=== PATIENT | male | born 1985 | race Caucasian/White ===

== ENCOUNTER 2019-09-07 16:34 | Emergency (ER) | payer SELFPAY ==
--- NOTE | 2019-09-07 19:02 | EDM.PDOC ---
ED HPI GENERAL MEDICAL PROBLEM - General Chief Complaint: Behavioral/Psych Stated Complaint: fast heart rate Time Seen by Provider: 09/07/19 17:04 Source of Information: Reports: Patient History Limitations: Reports: No Limitations - History of Present Illness INITIAL COMMENTS - FREE TEXT/NARRATIVE: 34-year-old male presents to the ED with recurrent bouts of generalized anxiety with palpitations dyspnea, and today a strong sense of doom. Associated numbness and tingling in his upper extremities particularly his hands and periorally. He states this is the third or fourth bout that he is experienced but this was the worst . Previously was aware of palpitations with a thud feeling in his chest. Today he felt his heart was racing more than the past. Patient admits that there is numerous life stressors going on at present with the [place] virus interfering with his ability to work as well as whether or not he is going to continue to have a job to support his family etc. He has had no previous problems with generalized anxiety. He states he is sleeping fairly well and eating adequately. Denies any depression symptoms or suicidal ideation. He otherwise is in good health. Takes alcohol socially no substance abuse Onset: Today (Parents to bout of palpitations with racing heart shortness of breath diaphoresis paresthesias and a strong sense of doom.) Onset Date: 09/07/19 (Times lasted approximately 10 to 15 minutes.) Duration: Minutes: Location: Reports: Generalized Quality: Reports: Other (States he is in hands) Severity: Severe (and periorally.) Improves with: Reports: Other (Improved on its own.) Worsens with: Reports: None Context: Reports: Other (Pain is occurrence for no good reason. The trigger itself is not known to the patient). Denies: Activity, Exercise, Lifting, Sick Contact, Trauma Associated Symptoms: Reports: Malaise, Shortness of Breath, Weakness, Other ( Rotations diaphoresis). Denies: Confusion, Chest Pain, Cough, cough w sputum, Diaphoresis, Fever/Chills, Headaches, Loss of Appetite, Nausea/Vomiting, Rash, Seizure, Syncope Treatments MANUFACTURER'S REPRESENTATIVE: Reports: Other (see below) - Related Data Allergies Allergy/AdvReac Type Severity Reaction Status Date / Time No Known Allergies Allergy Verified 09/07/19 16:40 Home Meds: Home Meds LORazepam [Ativan] 1 mg PO Q8H PRN #10 tablet 09/07/19 [Rx] Past Medical History - Infectious Disease History Infectious Disease History: Reports: Chicken Pox, Influenza - Past Surgical History HEENT Surgical History: Reports: Oral Surgery Musculoskeletal Surgical History: Reports: Arthroscopic Knee Social & Family History - Family History Family Medical History: Noncontributory - Tobacco Use Smoking Status *Q: Never Smoker Second Hand Smoke Exposure: No - Living Situation & Occupation Living situation: Reports: Occupation: Employed ED ROS GENERAL - Review of Systems Review Of Systems: See Below Constitutional: Denies: Fever, Chills, Malaise, Weakness, Decreased Appetite, Weight Loss HEENT: Reports: No Symptoms Respiratory: Reports: Shortness of Breath Cardiovascular: Reports: Palpitations. Denies: Blood Pressure Problem, Claudication, Dyspnea on Exertion, Edema, Lightheadedness, Orthopnea Endocrine: Reports: No Symptoms GI/Abdominal: Reports: No Symptoms : Reports: No Symptoms Musculoskeletal: Reports: No Symptoms Skin: Reports: Diaphoresis Neurological: Reports: Confusion, Dizziness, Numbness (And hands and feet), Paresthesia (In his hands and periorally), Tingling, Weakness. Denies: Headache , Difficulty Walking Psychiatric: Reports: Anxiety (With a strong sense of doom suggesting panic attack) Hematologic/Lymphatic: Reports: No Symptoms Immunologic: Reports: No Symptoms ED EXAM, GENERAL - Physical Exam Exam: See Below Exam Limited By: No Limitations General Appearance: Alert, WD/WN, Anxious, Other (Temperature is 37.4 with a pulse of 100 respiratory 16 BP 151/94 pulse ox 98% on room air sugars currently 126/82) Eye Exam: Bilateral Eye: Normal Inspection, PERRL Throat/Mouth: Normal Inspection, Normal Lips, Normal Teeth, Normal Oropharynx Head: Atraumatic, Normocephalic Neck: Normal Inspection, Supple, Non-Tender, Full Range of Motion. No: Lymphadenopathy (L), Lymphadenopathy (R), Thyromegaly Respiratory/Chest: No Respiratory Distress, Lungs Clear, Normal Breath Sounds, No Accessory Muscle Use, Chest Non-Tender Cardiovascular: Normal Peripheral Pulses, Regular Rate, Rhythm, No Edema, No Gallop, No Murmur, No Rub Peripheral Pulses: 3+: Carotid (L), Carotid (R), Posterior Tibial (L), Posterior Tibial (R), Dorsalis Pedis (L), Dorsalis Pedis (R) GI/Abdominal: Normal Bowel Sounds, Soft, Non-Tender, No Organomegaly, No Abnormal Bruit, No Mass, Pelvis Stable Rectal (Males) Exam: Rectal Fissure Back Exam: Normal Inspection, Full Range of Motion, CVA Tenderness (R). No: CVA Tenderness (L) Extremities: Normal Inspection, Normal Range of Motion, Non-Tender Neurological: Alert, Oriented, CN II-XII Intact, Normal Cognition Psychiatric: Anxious (Mild.). No: Tearful, Other Skin Exam: Warm, Dry, Intact, Normal Color, No Rash EKG INTERPRETATION EKG Date: 09/07/19 Time: 17:27 Rhythm: NSR Rate (Beats/Min): 85 [place]: Normal P-Wave: Present QRS: RBBB ST-T: Normal QT: Prolonged EKG Interpretation Comments: Abnormal ECG Course - Vital Signs Last Recorded V/S: Last Vital Signs Temp 37.4 C 09/07/19 16:41 Pulse 100 09/07/19 16:41 Resp 16 09/07/19 16:41 BP 151/94 H 09/07/19 16:41 Pulse Ox 98 09/07/19 16:41 - Orders/Labs/Meds Orders: Active Orders 24 hr Category Date Time Status EKG Documentation Completion [RC] STAT Care 09/07/19 17:11 Active CBC WITH AUTO DIFF [HEME] Stat Lab 09/07/19 17:04 Ordered COMPREHENSIVE METABOLIC PN,CMP [CHEM] Stat Lab 09/07/19 17:04 Ordered MAGNESIUM [CHEM] Stat Lab 09/07/19 17:04 Ordered TSH [CHEM] Stat Lab 09/07/19 17:04 Ordered Labs: Laboratory Tests 09/07/19 09/07/19 Range/Units 17:59 17:59 WBC 5.92 (4.23-9.07) K/mm3 RBC 4.76 (4.63-6.08) M/mm3 Hgb 14.0 (13.7-17.5) gm/dl Hct 41.3 (40.1-51.0) % MCV 86.8 (79.0-92.2) fl MCH 29.4 (25.7-32.2) pg MCHC 33.9 (32.2-35.5) g/dl RDW Std Deviation 38.5 (35.1-43.9) fL Plt Count 266 (163-337) K/mm3 MPV 9.4 (9.4-12.3) fl Neut % (Auto) 49.6 (34.0-67.9) % Lymph % (Auto) 37.7 (21.8-53.1) % [place] % (Auto) 9.3 (5.3-12.2) % Eos % (Auto) 2.9 (0.8-7.0) Baso % (Auto) 0.5 (0.1-1.2) % Neut # (Auto) 2.94 (1.78-5.38) K/mm3 Lymph # (Auto) 2.23 (1.32-3.57) K/mm3 [place] # (Auto) 0.55 (0.30-0.82) K/mm3 Eos # (Auto) 0.17 (0.04-0.54) K/mm3 Baso # (Auto) 0.03 (0.01-0.08) K/mm3 Sodium 145 (136-145) mEq/L Potassium 4.1 (3.5-5.1) mEq/L Chloride 109 H (98-107) mEq/L Carbon Dioxide 28 (21-32) mEq/L Anion Gap 12.1 (5-15) BUN 22 H (7-18) mg/dL Creatinine 1.2 (0.7-1.3) mg/dL Est Cr Clr Drug Dosing TNP Estimated GFR (MDRD) > 60 (>60) mL/min BUN/Creatinine Ratio 18.3 H (14-18) Glucose 94 (74-106) mg/dL Calcium 8.6 (8.5-10.1) mg/dL Magnesium 1.8 (1.8-2.4) mg/dl Total Bilirubin 0.3 (0.2-1.0) mg/dL AST 15 (15-37) U/L ALT 31 (16-63) U/L Alkaline Phosphatase 82 (46-116) U/L Total Protein 6.8 (6.4-8.2) g/dl Albumin 3.5 (3.4-5.0) g/dl Globulin 3.3 gm/dL Albumin/Globulin Ratio 1.1 (1-2) TSH 3rd Generation 1.078 (0.358-3.74) uIU/mL - Radiology Interpretation Free Text/Narrative:: 4-year-old male presents to the ED with a history of recurrent bouts of palpitations worse today than what he is experienced in the past. Today felt his heart was racing. Associated shortness of breath diaphoresis paresthesias in hands and periorally and a strong sense of doom indicating panic attack. Denies any that he is under a lot of life stressors at this point time due to the COVID-19 virus and his job being in jeopardy etc. He cannot particularly identify any trigger that set things off today. He is otherwise in good health and takes no medications. Social alcohol use. Does not use any stimulants or energy drinks. - Re-Assessments/Exams Free Text/Narrative Re-Assessment/Exam: 09/07/19 19:12 White count is 5.92 with 50% neutrophils on auto differential. Hemoglobin is 14.0 with hematocrit of 41.3. Platelet count 266,000. Sodium was 145 with a potassium of 4.1. Chloride 109 with a bicarb of 28. Anion gap is 12.1 BUN is 22 with a creatinine of 1.2. Glucose is 94. Calcium is 8.6 magnesium is 1.8. Liver function is normal TSH is 1.078. Normal is a marked delay in getting his labs back due to computer malfunction. Labs however are normal at this time. Patient is suffering generalized anxiety disorder with panic attacks of new onset. I am going to send him home with 10 tablets of Ativan 1 mg strength to be used on a as needed basis every 8 hours if needed for similar type events. If symptoms persist past 3 weeks then he is to follow- up with personal care physician to adopt a treatment plan with antidepressant medication to prevent anxiety attacks. Departure - Departure Time of Disposition: 19:13 Disposition: Home, Self-Care 01 Reason for Transfer *Q: Other Condition: Fair Clinical Impression: Palpitations with regular cardiac rhythm, Generalized anxiety disorder with panic attacks Prescriptions: LORazepam [Ativan] 1 mg PO Q8H PRN #10 tablet PRN Reason: anxiety attack Instructions: Panic Attack, Palpitations, [id number], Generalized Anxiety Disorder, Adult Referrals: PCP,None [Primary Care Provider] - Forms: ED Department Discharge Additional Instructions: Evaluation in the emergency room today in regards to development of shortness of breath associated with a rapid racing heart and some diaphoresis or sweating and some shaking in the extremities with development of paresthesias which means numbness tingling in the hands and around the lips. Also a strong sense of doom. These are all signs and symptoms of anxiety attack with what we call panic disorder. You been having some palpitations recently but to the severity that you experienced today. Complete cardiac work-up carried out reveals no abnormalities of your ECG or heart. Lab work also proved to be normal including normal thyroid function. Therefore treatment at this time is to use Ativan 1 mg tablet as needed. This means if you are starting to feel very anxious and are starting to experience a sense of loss of control it is time to take a tablet. Every may be repeated every 6-8 hours as needed. Often these attacks will last for to 3 weeks and go away however if symptoms persist longer than 3 weeks then alternative treatment is indicated where you would take a medication once daily to prevent anxiety attacks from occurring. Please follow- up with your personal care physician in this regard if needed. Sepsis Event Note - Evaluation Sepsis Screening Result: No Definite Risk - Focused Exam Vital Signs: Vital Signs Temp Pulse Resp BP Pulse Ox 09/07/19 16:41 37.4 C 100 16 151/94 H 98 Date Exam was Performed: 09/07/19 Time Exam was Performed: 19:12 - My Orders Last 24 Hours: My Active Orders 09/07/19 17:04 CBC WITH AUTO DIFF [HEME] Stat COMPREHENSIVE METABOLIC PN,CMP [CHEM] Stat MAGNESIUM [CHEM] Stat TSH [CHEM] Stat 09/07/19 17:11 EKG Documentation Completion [RC] STAT - Assessment/Plan Last 24 Hours: My Active Orders 09/07/19 17:04 CBC WITH AUTO DIFF [HEME] Stat COMPREHENSIVE METABOLIC PN,CMP [CHEM] Stat MAGNESIUM [CHEM] Stat TSH [CHEM] Stat 09/07/19 17:11 EKG Documentation Completion [RC] STAT
== END 2019-09-07 19:35 | disposition home or self-care (01) ==
LOC: JD.ED 16:34
DX: R00.2 Palpitations (principal); F41.0 Panic disorder [episodic paroxysmal anxiety]; F41.1 Generalized anxiety disorder
CPT/HCPCS: 36415; 80053; 83735; 84443; 85025; 93005; 93010; 99284; 99285-25